=== PATIENT | female | born 2005 | race Caucasian/White ===

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

== ENCOUNTER 2023-02-28 16:20 | Emergency (ER) | payer OTHER ==
[~2023-02-28] VITALS: Ht 165.1 cm; Wt 69.4 kg
[2023-02-28 19:00] VITALS: BP 119/70
[2023-02-28] MEDS ORDERED: PRED20 PO (19:29)
[2023-02-28] MEDS ORDERED: BENADRYL25 M1 PO (19:29)
[2023-02-28] MEDS ORDERED: FAMO20 PO (19:29)
[2023-02-28] MEDS ORDERED: EPIPEN0.3 MG/0.1 IM (19:29)
== END 2023-02-28 19:30 | disposition home or self-care (01) ==
LOC: ER 16:20
DX: T78.01XA Anaphylactic reaction due to peanuts, initial encounter (principal); J45.909 Unspecified asthma, uncomplicated; Z88.0 Allergy status to penicillin; Z91.018 Allergy to other foods
CPT/HCPCS: 94640; 94664; 96361; 96374; 96375; 99285-25; J1100; J7030

== ENCOUNTER 2023-10-06 19:45 | Emergency (ER) | payer BC, OTHER ==
[~2023-10-06] VITALS: Ht 165.1 cm; Wt 72.6 kg
[~2023-10-06 19:45] MED LIST changes: +BENADRYL25 M1 PO; +EPIPEN0.3 MG/0.1 IM; +FAMO20 PO; +PRED20 PO
[2023-10-06] MEDS ORDERED: SUMA25 PO (19:53)
[2023-10-06] MEDS ORDERED: TOPI15C (19:53)
[2023-10-06 20:49] VITALS: BP 130/76
== END 2023-10-06 20:54 | disposition home or self-care (01) ==
LOC: ER 19:45
DX: G43.909 Migraine, unspecified, not intractable, without status migrainosus (principal); T39.8X5A Adverse effect of other nonopioid analgesics and antipyretics, not elsewhere classified, initial encounter; Z88.0 Allergy status to penicillin; Z91.018 Allergy to other foods; Z79.899 Other long term (current) drug therapy; J45.909 Unspecified asthma, uncomplicated
CPT/HCPCS: 93005; 93010; 96374; 96375; 99284-25; J1200; J1885; J2765

== ENCOUNTER → 2024-04-02 | Outpatient (CLI) | payer BC ==
[~2024-04-02] MED LIST changes: +SUMA25 PO; +TOPI15C
== END ==
LOC: LAB 17:07 → LAB SHORT 17:07
DX: R30.0 Dysuria (principal)
CPT/HCPCS: 87086